=== PATIENT | female | born 2000 | race American Indian/Alaskan Native ===

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

== ENCOUNTER 2020-06-15 15:24 | Emergency (ER) | payer SELFPAY ==
[2020-06-15 16:32] VITALS: BP 105/65
--- NOTE | 2020-06-15 16:46 | Emergency Department Report ---
ED ENT HPI - General Chief complaint: Dental/Oral Stated complaint: TOOTHACHE Source: patient Mode of arrival: Ambulatory Limitations: No Limitations - History of Present Illness Initial comments: 19-year-old -[place] female comes in complaining of left ear and left upper jaw pain. Not sure if this is tooth or ear related. Has not taken any pain medication and has been going on for 1 week. Denies any fever chills no nausea no vomiting. MD complaint: tooth pain, ear pain Onset/Timin -: week(s) Location: L ear, tooth # Severity: moderate Quality: aching Consistency: intermittent Improves with: none Associated Symptoms: toothache - Related Data Home Medications Medication Instructions Recorded Confirmed Last Taken ALPRAZolam [Xanax TAB] 1 mg PO TID PRN 05/23/19 10/04/19 04/23/19 Paliperidone [Invega] 6 mg PO QDAY 05/23/19 10/04/19 04/23/19 Zolpidem [Ambien] 10 mg PO QHS 05/23/19 10/04/19 05/23/19 Previous Rx's Medication Instructions Recorded Last Taken Type Butalb/Acetamin/Caff 50-325-40 1 tab PO Q8HR PRN #14 tablet 08/27/19 Unknown Rx [Fioricet 50-325-40] QUEtiapine [SEROquel] 25 mg PO BID #60 tablet 10/05/19 Unknown Rx Sertraline [Zoloft] 25 mg PO QDAY #30 tab 10/05/19 Unknown Rx Ibuprofen [Motrin] 800 mg PO Q8H PRN #12 tablet 04/18/20 Unknown Rx Amoxicillin/K Clav Tab [Augmentin 1 tab PO Q12HR #20 tab 06/15/20 Unknown Rx 875MG TAB] Ibuprofen [Motrin 400 MG tab] 400 mg PO Q8H PRN #30 tablet 06/15/20 Unknown Rx Allergies Allergy/AdvReac Type Severity Reaction Status Date / Time erythromycin base Allergy Hives Verified 04/18/20 15:16 venom-honey bee Allergy Swelling Verified 04/18/20 15:16 [bee venom (honey bee)] ED Dental HPI - General Chief complaint: Dental/Oral Stated complaint: TOOTHACHE Source: patient Mode of arrival: Ambulatory Limitations: No Limitations - Related Data Home Medications Medication Instructions Recorded Confirmed Last Taken ALPRAZolam [Xanax TAB] 1 mg PO TID PRN 05/23/19 10/04/19 04/23/19 Paliperidone [Invega] 6 mg PO QDAY 05/23/19 10/04/19 04/23/19 Zolpidem [Ambien] 10 mg PO QHS 05/23/19 10/04/19 05/23/19 Previous Rx's Medication Instructions Recorded Last Taken Type Butalb/Acetamin/Caff 50-325-40 1 tab PO Q8HR PRN #14 tablet 08/27/19 Unknown Rx [Fioricet 50-325-40] QUEtiapine [SEROquel] 25 mg PO BID #60 tablet 10/05/19 Unknown Rx Sertraline [Zoloft] 25 mg PO QDAY #30 tab 10/05/19 Unknown Rx Ibuprofen [Motrin] 800 mg PO Q8H PRN #12 tablet 04/18/20 Unknown Rx Amoxicillin/K Clav Tab [Augmentin 1 tab PO Q12HR #20 tab 06/15/20 Unknown Rx 875MG TAB] Ibuprofen [Motrin 400 MG tab] 400 mg PO Q8H PRN #30 tablet 06/15/20 Unknown Rx Allergies Allergy/AdvReac Type Severity Reaction Status Date / Time erythromycin base Allergy Hives Verified 04/18/20 15:16 venom-honey bee Allergy Swelling Verified 04/18/20 15:16 [bee venom (honey bee)] ED Review of Systems ROS: Stated complaint: TOOTHACHE Other details as noted in HPI Comment: All other systems reviewed and negative ED Past Medical Hx - Past Medical History Hx Psychiatric Treatment: Yes (bipolar Schizophrenia) Additional medical history: seasonal allergies - Surgical History Additional Surgical History: hernia - Social History Smoking Status: Current Every Day Smoker Substance Use Type: None - Medications Home Medications: Home Medications Medication Instructions Recorded Confirmed Last Taken Type ALPRAZolam [Xanax TAB] 1 mg PO TID PRN 05/23/19 10/04/19 04/23/19 History Paliperidone [Invega] 6 mg PO QDAY 05/23/19 10/04/19 04/23/19 History Zolpidem [Ambien] 10 mg PO QHS 05/23/19 10/04/19 05/23/19 History Butalb/Acetamin/Caff 50-325-40 1 tab PO Q8HR PRN #14 tablet 20 10/04/19 Unknown Rx [Fioricet 50-325-40] QUEtiapine [SEROquel] 25 mg PO BID #60 tablet 10/05/19 Unknown Rx Sertraline [Zoloft] 25 mg PO QDAY #30 tab 10/05/19 Unknown Rx Ibuprofen [Motrin] 800 mg PO Q8H PRN #12 tablet 04/18/20 Unknown Rx Amoxicillin/K Clav Tab [Augmentin 1 tab PO Q12HR #20 tab 06/15/20 Unknown Rx 875MG TAB] Ibuprofen [Motrin 400 MG tab] 400 mg PO Q8H PRN #30 tablet 06/15/20 Unknown Rx ED Physical Exam - General Limitations: No Limitations General appearance: alert, in no apparent distress - Head Head exam: Present: atraumatic, normocephalic - Eye Eye exam: Present: normal appearance - ENT ENT exam: Present: mucous membranes moist - Expanded ENT Exam Expanded TM/Canal exam: Loss of Landmarks: Left TM - Neck Neck exam: Present: normal inspection, full ROM - Respiratory Respiratory exam: Absent: accessory muscle use - Cardiovascular Cardiovascular Exam: Present: regular rate, normal rhythm. Absent: systolic murmur, diastolic murmur, rubs, gallop - Back Exam Back exam: Present: full ROM - Neurological Exam Neurological exam: Present: alert, oriented X3, normal gait - Psychiatric Psychiatric exam: Present: normal affect, normal mood - Skin Skin exam: Present: warm, dry, intact, normal color. Absent: rash ED Course Vital Signs 06/15/20 16:29 Temperature 99.0 F Pulse Rate 106 H Respiratory 18 Rate Blood Pressure 105/65 O2 Sat by Pulse 99 Oximetry ED Medical Decision Making - Medical Decision Making 19-year-old -[place] female comes in complaining of left ear and left upper jaw pain. Not sure if this is tooth or ear related. Has not taken any pain medication and has been going on for 1 week. Denies any fever chills no n ausea no vomiting. We will treat for otitis media. Amoxicillin 875 p.o. twice daily for 10 days follow-up with a primary care provider. Critical care attestation.: If time is entered above; I have spent that time in minutes in the direct care of this critically ill patient, excluding procedure time. ED Disposition Clinical Impression: Otitis media Disposition: DC-01 TO HOME OR SELFCARE Is pt being admited?: No Does the pt Need Aspirin: No Condition: Stable Instructions: Otitis Media, Adult, [id number] Additional Instructions: Complete antibiotics as prescribed take pain medication as needed increase your water intake follow-up with your primary care provider and dentist. Prescriptions: Amoxicillin/K Clav Tab [Augmentin 875MG TAB] 1 tab PO Q12HR #20 tab Ibuprofen [Motrin 400 MG tab] 400 mg PO Q8H PRN #30 tablet PRN Reason: pain Referrals: [facility] [Provider Group] - 3-5 Days
== END 2020-06-15 17:15 | disposition home or self-care (01) ==
LOC: ED 15:24
DX: H66.92 Otitis media, unspecified, left ear (principal)
CPT/HCPCS: 99281

== ENCOUNTER 2020-12-26 14:55 | Emergency (ER) | payer OTHER ==
[2020-12-26 16:47] VITALS: BP 132/64
[2020-12-26] MEDS ORDERED: ONDANSETRON 4 MG ODT TAB PO ONE (16:51)
[2020-12-26] MEDS ORDERED: FAMOTIDINE 20 MG TAB PO ONE (16:51)
[2020-12-26 17:15] LABS: Basophils % (Auto) 0.3 % (0.0-1.8); Eosinophils # (Auto) 0.1 K/mm3 (0.0-0.4); Hematocrit 40.5 % (30.3-42.9); Hemoglobin 13.2 gm/dl (10.1-14.3); Lymphocytes # (Auto) 0.4 K/mm3 (1.2-5.4); Lymphocytes % (Auto) 6.8 % (13.4-35.0); Mean Corpuscular HGB Conc 33 % (30-34); Mean Corpuscular Volume 82 fl (79-97); Monocytes # (Auto) 0.4 K/mm3 (0.0-0.8); Monocytes % (Auto) 6.2 % (0.0-7.3); Platelet Count 296 K/mm3 (140-440); Red Blood Count 4.93 M/mm3 (3.65-5.03)
[2020-12-26 17:35] LABS: Alanine Aminotransferase 10 units/L (7-56); Albumin 4.8 g/dL (3.9-5); Blood Urea Nitrogen 4 mg/dL (7-17); Calcium 9.2 mg/dL (8.4-10.2); Hemolysis Index 5
[2020-12-26 17:43] LABS: BUN/Creatinine Ratio 8
[2020-12-26] MEDS ORDERED: ACETAMINOPHEN 325 MG TAB PO ONE (18:58)
[2020-12-26] MEDS ORDERED: SODIUM CHLORIDE 0.9% 1000 ML 1,000 ML IV ONE (18:58)
[2020-12-26] MEDS ORDERED: ONDANSETRON 4 MG/2 ML INJ IV ONE (18:58)
[2020-12-26] MEDS ORDERED: FAMOTIDINE 20 MG/2 ML INJ IV ONE (18:58)
--- NOTE | 2020-12-26 19:01 | Emergency Department Report ---
ED N/V/D HPI - General Chief complaint: Nausea/Vomiting/Diarrhea Stated complaint: THINKS THEY HAVE COVID 19 Source: patient Mode of arrival: Ambulatory Limitations: No Limitations - History of Present Illness Initial comments: Patient is a nulliparous 20-year-old -[place] female with a history of bipolar disorder and paranoid schizophrenia who presents to the ED with c omplaint of acute onset persistent epigastric pain, nausea and vomiting with diarrhea, lightheadedness, lack of appetite today and generalized weakness for the last 1 and half weeks worse in the last 3 days. Patient states that she has not been able to keep anything down for the last 3 days because of worsening nausea and vomiting and diarrhea. Patient states that no one else at home is had similar symptoms. Patient also complains of nasal and sinus congestion, mild dry cough and diffuse body aches and pains. Patient denies chest pain, shortness of breath, sore throat, dizziness, syncope, dysuria, urinary frequency and urgency, vaginal discharge, vaginal bleeding, low back pain, headache or hematochezia. MD complaint: nausea, vomiting, diarrhea, abdominal pain (epigastric pain), other (Nasal and sinus congestion; dry cough; fever and chills) -: Sudden, week(s) (1) Description of Vomiting: food contents, watery Description of Diarrhea: water Associated Abdominal Pain: Yes Location: epigastric Radiation: none Severity: severe Pain Scale: 4 Quality: cramping, aching Consistency: constant Improves with: none Worsens with: none Context: possible food poisoning, sick contacts Associated Symptoms: denies other symptoms, cough, fever/chills, headaches, loss of appetite, malaise, nausea/vomiting. denies: myalgias, chest pain, diaphoresis, rash, dysuria, shortness of breath, other - Related Data Home Medications Medication Instructions Recorded Confirmed Last Taken ALPRAZolam [Xanax TAB] 1 mg PO TID PRN 05/23/19 10/04/19 04/23/19 Paliperidone [Invega] 6 mg PO QDAY 05/23/19 10/04/19 04/23/19 Zolpidem (Nf) [Ambien] 10 mg PO QHS 05/23/19 10/04/19 05/23/19 Previous Rx's Medication Instructions Recorded Last Taken Type Butalb/Acetamin/Caff 50-325-40 1 tab PO Q8HR PRN #14 tablet 08/27/19 Unknown Rx [Fioricet 50-325-40] QUEtiapine [SEROquel] 25 mg PO BID #60 tablet 10/05/19 Unknown Rx Sertraline [Zoloft] 25 mg PO QDAY #30 tab 10/05/19 Unknown Rx Ibuprofen [Motrin] 800 mg PO Q8H PRN #12 tablet 04/18/20 Unknown Rx Amoxicillin/K Clav Tab [Augmentin 1 tab PO Q12HR #20 tab 06/15/20 Unknown Rx 875MG TAB] Ibuprofen [Motrin 400 MG tab] 400 mg PO Q8H PRN #30 tablet 06/15/20 Unknown Rx Dicyclomine [Bentyl] 20 mg PO Q6H PRN #30 tablet 12/26/20 Unknown Rx Diphenoxylate/Atropine [Lomotil] 1 - 2 tab PO Q4H PRN #15 tablet 12/26/20 Unknown Rx Famotidine [Pepcid] 20 mg PO Q12H #40 tablet 12/26/20 Unknown Rx Ondansetron [Zofran Odt] 4 mg PO Q6HR PRN #20 tab.rapdis 12/26/20 Unknown Rx Allergies Allergy/AdvReac Type Severity Reaction Status Date / Time erythromycin base Allergy Hives Verified 12/26/20 16:46 venom-honey bee Allergy Swelling Verified 12/26/20 16:46 [bee venom (honey bee)] ED Review of Systems ROS: Stated complaint: THINKS THEY HAVE COVID 19 Other details as noted in HPI Constitutional: chills, fever, malaise, weakness Eyes: denies: eye pain, eye discharge, vision change ENT: congestion Respiratory: no symptoms reported, cough. denies: see HPI, shortness of breath, SOB at rest, stridor, wheezing Cardiovascular: denies: chest pain, palpitations Endocrine: no symptoms reported Gastrointestinal: abdominal pain, nausea, vomiting, diarrhea Genitourinary: denies: urgency, dysuria, discharge Musculoskeletal: arthralgia, myalgia. denies: back pain, joint swelling Skin: denies: rash, lesions Neurological: headache. denies: weakness, paresthesias Psychiatric: denies: anxiety, depression Hematological/Lymphatic: denies: easy bleeding, easy bruising ED Past Medical Hx - Past Medical History Hx Psychiatric Treatment: Yes (bipolar Schizophrenia) Additional medical history: seasonal allergies - Surgical History Additional Surgical History: hernia - Social History Smoking Status: Current Every Day Smoker Substance Use Type: None - Medications Home Medications: Home Medications Medication Instructions Recorded Confirmed Last Taken Type ALPRAZolam [Xanax TAB] 1 mg PO TID PRN 05/23/19 10/04/19 04/23/19 History Paliperidone [Invega] 6 mg PO QDAY 05/23/19 10/04/19 04/23/19 History Zolpidem (Nf) [Ambien] 10 mg PO QHS 05/23/19 10/04/19 05/23/19 History Butalb/Acetamin/Caff 50-325-40 1 tab PO Q8HR PRN #14 tablet 08/27/19 10/04/19 Unknown Rx [Fioricet 50-325-40] QUEtiapine [SEROquel] 25 mg PO BID #60 tablet 10/05/19 Unknown Rx Sertraline [Zoloft] 25 mg PO QDAY #30 tab 10/05/19 Unknown Rx Ibuprofen [Motrin] 800 mg PO Q8H PRN #12 tablet 04/18/20 Unknown Rx Amoxicillin/K Clav Tab [Augmentin 1 tab PO Q12HR #20 tab 06/15/20 Unknown Rx 875MG TAB] Ibuprofen [Motrin 400 MG tab] 400 mg PO Q8H PRN #30 tablet 06/15/20 Unknown Rx Dicyclomine [Bentyl] 20 mg PO Q6H PRN #30 tablet 12/26/20 Unknown Rx Diphenoxylate/Atropine [Lomotil] 1 - 2 tab PO Q4H PRN #15 tablet 12/26/20 Unknown Rx Famotidine [Pepcid] 20 mg PO Q12H #40 tablet 12/26/20 Unknown Rx Ondansetron [Zofran Odt] 4 mg PO Q6HR PRN #20 tab.rapdis 12/26/20 Unknown Rx ED Physical Exam - General Limitations: No Limitations General appearance: alert, in no apparent distress - Head Head exam: Present: atraumatic, normocephalic, normal inspection - Eye Eye exam: Present: normal appearance, PERRL, EOMI Pupils: Present: normal accommodation - ENT ENT exam: Present: normal exam, normal orophraynx, mucous membranes moist, TM's normal bilaterally, normal external ear exam - Neck Neck exam: Present: normal inspection, full ROM - Respiratory Respiratory exam: Present: normal lung sounds bilaterally. Absent: respiratory distress, wheezes, rales, rhonchi, chest wall tenderness, accessory muscle use, decreased breath sounds, prolonged expiratory - Cardiovascular Cardiovascular Exam: Present: regular rate, normal rhythm, normal heart sounds. Absent: systolic murmur, diastolic murmur, rubs, gallop - GI/Abdominal GI/Abdominal exam: Present: soft, tenderness (Palpable mild epigastric tenderness), normal bowel sounds. Absent: guarding, rebound, hyperactive bowel sounds, hypoactive bowel sounds, organomegaly - Extremities Exam Extremities exam: Present: normal inspection, full ROM, normal capillary refill - Back Exam Back exam: Present: normal inspection, full ROM. Absent: tenderness, CVA tenderness (R), CVA tenderness (L), muscle spasm, paraspinal tenderness, vertebral tenderness - Neurological Exam Neurological exam: Present: alert, oriented X3, CN II-XII intact, normal gait, reflexes normal - Psychiatric Psychiatric exam: Present: normal affect, normal mood, anxious - Skin Skin exam: Present: warm, dry, intact, normal color. Absent: rash ED Course Vital Signs 12/26/20 16:46 Temperature 99.2 F Pulse Rate 95 H Blood Pressure 132/64 [Left] O2 Sat by Pulse 97 Oximetry ED Medical Decision Making - Lab Data Result diagrams: 12/26/20 16:52 12/26/20 16:52 - Radiology Data Radiology results: report reviewed, image reviewed [facility] [address] [place] [address] XRay Report Signed Patient: KAMILLE SRINIVASAN MR#: [id number] : 2000 Acct:[id number] Age/Sex: 20 / F ADM Date: 12/26/20 Loc: ED Attending Dr: Ordering Physician: JASEN HARTLEY Date of Service: 12/26/20 Procedure(s): XR chest routine 2V Accession Number(s): [id number] cc: JASEN HARTLEY Fluoro Time In Minutes: XR chest routine 2V INDICATION / CLINICAL INFORMATION: COUGH, WEAKNESS COMPARISON: None available. FINDINGS: SUPPORT DEVICES: None. HEART / MEDIASTINUM: No significant abnormality. LUNGS / PLEURA: Lungs are clear. Costophrenic sulci are sharp. No pne umothorax. ADDITIONAL FINDINGS: No significant additional findings. IMPRESSION: 1. No acute findings. Signer Name: Chris Silveira MD Signed: 12/26/2020 7:59 PM Workstation Name: [id number] Transcribed By: CS Dictated By: Chris Silveira MD Electronically Authenticated By: Chris Silveira MD Signed Date/Time: 12/26/201958 DD/ 58 TD/TT: - Medical Decision Making This is a nulliparous 20-year-old -[place] female with a history of bipolar disorder and paranoid schizophrenia who presents to the ED with complaint of acute onset persistent epigastric pain, nausea and vomiting with diarrhea, lightheadedness, lack of appetite today and generalized weakness for the last 1 and half weeks worse in the last 3 days. Patient states that she has not been able to keep anything down for the last 3 days because of worsening nausea and vomiting and diarrhea. Patient states that no one else at home is had similar symptoms. Patient also complains of nasal and sinus congestion, mild dry cough and diffuse body aches and pains. In the ED, patient is alert and oriented x3 and is not in any distress. Lab test results were reviewed and are all nonactionable. Chest x-ray showed no acute cardiopulmonary ab normalities or pneumonitis. Patient was treated in the ED for nausea and vomiting, also given antacids and pain medications as well as normal saline 1 L IV bolus x1. On reevaluation, patient symptoms resolved with medications. Patient passed oral fluid challenge in the ED. At discharge, patient is in hemodynamically stable, alert and oriented x4 and is in no acute distress. Patient was discharged home on medications and advised to maintain a clear liquid diet for 24 to 48 hours, and take medications as needed. Patient was advised to follow-up with her primary care physician in 5 to 7 days for reevaluation, or return to the ED immediately if symptoms get worse. - Differential Diagnosis Viral gastroenteritis; viral URI with cough; dehydration; GERD; UTI Critical care attestation.: If time is entered above; I have spent that time in minutes in the direct care of this critically ill patient, excluding procedure time. ED Disposition Clinical Impression: Viral gastroenteritis, Nausea, vomiting and diarrhea, Viral upper respiratory tract infection with cough Disposition: DC-01 TO HOME OR SELFCARE Is pt being admited?: No Does the pt Need Aspirin: No Condition: Stable Instructions: Upper Respiratory Infection, Adult, [id number], Viral Gastroenteritis, Adult, [id number], Diarrhea, Adult, [id number], Nausea and Vomiting, Adult, [id number] Additional Instructions: All lab test results were reviewed and are all nonactionable. Chest x-ray showed no acute cardiopulmonary abnormalities pneumonitis. Based on the history and physical exam findings, including lab test results and imaging report, your symptoms are likely due to a viral gastroenteritis which is typically from food poisoning or acquired through other oral contact. Therefore maintain a clear liquid diet for 24 to 48 hours, take medication as advised, drink plenty of fluids and follow-up with your primary care physician in 5 to 7 days for reevaluation. Return to the ED immediately if symptoms get worse. Prescriptions: Dicyclomine [Bentyl] 20 mg PO Q6H PRN #30 tablet PRN Reason: Abdominal pain Diphenoxylate/Atropine [Lomotil] 1 - 2 tab PO Q4H PRN #15 tablet PRN Reason: Diarrhea Famotidine [Pepcid] 20 mg PO Q12H #40 tablet Ondansetron [Zofran Odt] 4 mg PO Q6HR PRN #20 tab.rapdis PRN Reason: Nausea And Vomiting Referrals: [facility] [Provider Group] - 3-5 Days Time of Disposition: 22:46 Print Language: SLOVAK
--- NOTE | 2020-12-26 20:04 | XRay Report ---
XR chest routine 2V INDICATION / CLINICAL INFORMATION: COUGH, WEAKNESS COMPARISON: None available. FINDINGS: SUPPORT DEVICES: None. HEART / MEDIASTINUM: No significant abnormality. LUNGS / PLEURA: Lungs are clear. Costophrenic sulci are sharp. No pneumothorax. ADDITIONAL FINDINGS: No significant additional findings. IMPRESSION: 1. No acute findings. Signer Name: Chris Silveira MD Signed: 12/26/2020 7:59 PM Workstation Name: [id number]
[2020-12-26 22:21] LABS: Bilirubin,Urine NEG (Negative); Blood,Urine NEG (Negative); Color,Urine Yellow (Yellow); Mucus,Urine 3+ /HPF; Urobilinogen,Urine < 2.0 mg/dL (<2.0)
== END 2020-12-26 23:37 | disposition home or self-care (01) ==
LOC: ED 14:55
DX: A08.4 Viral intestinal infection, unspecified (principal); J06.9 Acute upper respiratory infection, unspecified; B97.89 Other viral agents as the cause of diseases classified elsewhere; F31.9 Bipolar disorder, unspecified; F20.9 Schizophrenia, unspecified; F17.200 Nicotine dependence, unspecified, uncomplicated; Z88.1 Allergy status to other antibiotic agents; Z91.030 Bee allergy status; Z79.899 Other long term (current) drug therapy
CPT/HCPCS: 36415; 71046; 80053; 81001; 83690; 84703; 85025; 96361; 96374; 96375; 99284; J2405; J7030